=== PATIENT | male | born 1960 ===

== ENCOUNTER 2023-03-15 20:30 | Outpatient (CLI) | payer BC, OTHER ==
[2023-03-15 21:44] LABS: CREATININE 1.33 MG/DL (0.60-1.10); VANCOMYCIN,TROUGH 19.6 ug/mL (10.0-20.0); eGFR 55 ML/MIN
== END 2023-03-15 23:59 | disposition home or self-care (01) ==
LOC: LAB SPEC 20:30
PROVIDERS: ATTEND Internal Medicine Infectious Disease
DX: G06.0 Intracranial abscess and granuloma (principal)
CPT/HCPCS: 36415; 80202; 82565